=== PATIENT | male | born 1975 | race Caucasian/White ===

== ENCOUNTER → 2020-06-30 14:58 | Outpatient (CLI) | payer OTHER, SELFPAY ==
--- NOTE | ~2020-06-30 | CT_ITS ---
EXAMINATION: CT abdomen pelvis w con EXAM DATE: 06/30/2020 16:01 INDICATION: Abdominal pain, mostly generalized. Sometimes in the right lower quadrant. Nausea, diarrh ea. TECHNIQUE: Spiral CT of the abdomen and pelvis was performed following intravenous injection of 100 m L Omnipaque 350. Axial, coronal and sagittal images were reviewed. The dose-length product (DLP) fo r this examination was 1158.87 mGy-cm. The exposure was tailored according to patient size (auto mA exposure control), and iterative reconstruction (ASIR) was used as additional dose reduction techniqu e. There is no prior study for comparison. FINDINGS: The liver, spleen, adrenal glands and pancreas are unremarkable. Gallbladder is unremarkab le. No biliary obstruction. Portal and splenic veins are patent. Kidneys enhance symmetrically. T here is no hydronephrosis. The prostate is unremarkable. Small bilateral inguinal fat-containing he rnias. Small umbilical fat-containing hernia. The bladder is unremarkable. There is no retroperitone al or pelvic lymphadenopathy. The appendix is normal. There is mild to moderate scattered colonic diverticulosis. There is no kavon cent inflammatory change to suggest diverticulitis. The stomach and small bowel are unremarkable. Th ere is expected amount of colonic stool. No free intraperitoneal gas. The heart is normal in size . There are no pericardial or pleural effusions. The lung bases are unremarkable. There are no ost eoblastic or osteolytic lesions identified. IMPRESSION: 1. Mild to moderate scattered colonic diverticulosis. 2. Small fat-containing hernias. Reviewed, dictated and finalized at location B. [employer]
== END ==
PROVIDERS: PCP Family Medicine; Visit Provider Nurse Practitioner Family
DX: R10.84 Generalized abdominal pain (principal); R14.0 Abdominal distension (gaseous); R63.5 Abnormal weight gain; K57.90 Diverticulosis of intestine, part unspecified, without perforation or abscess without bleeding
CPT/HCPCS: 74177; Q9967

== ENCOUNTER 2023-12-25 12:06 | Emergency (ER) | payer OTHER, SELFPAY ==
[2023-12-25] VITALS (9 sets, daily range): BP systolic 130–149; BP diastolic 80–102; PULSE 57–74; RESP 14–21; TEMP 36.4; O2SAT 95–98
--- NOTE | ~2023-12-25 | XR_ITS ---
EXAMINATION: XR chest 2V 12/25/2023 12:42 INDICATION: Chest pain PROCEDURE: 2 view chest COMPARISON: No prior studies for comparison. FINDINGS: The lungs are clear. The cardiomediastinal silhouette is within normal limits. There are no pleural effusions. There is no pneumothorax suspected. IMPRESSION: 1: NO ACUTE CARDIOPULMONARY DISEASE. Reviewed, dictated and finalized at location B.
--- NOTE | 2023-12-25 12:07 | ECG_ITS ---
SEE SCANNED COPY FOR CONFIRMED REPORT. MTDD
[2023-12-25 12:25] LABS: Basophils Percent Auto 0.3 % (0.2-1.2); Eosinophils Percent Auto 0.6 % (0-4.4); Hematocrit 44.4 % (42.0-52.0); Hemoglobin 15.5 g/dL (14.0-18.0); Immature Granulocyte Absolute 0.02 K/mm3 (0.00-0.031); Immature Granulocyte Percent A 0.3 % (0-0.5); Lymphocytes Absolute Auto 1.97 K/mm3 (0.9-3.2); Lymphocytes Percent Auto 30.3 % (18.3-44.2); Mean Corpuscular HGB Conc 34.9 g/dl (32-36); Mean Corpuscular Hemoglobin 30.4 pg (26-34); Mean Corpuscular Volume 87.1 fl (80-100); Mean Platelet Volume 9.5 fl (7.4-10.4); Monocytes Absolute Auto 0.5 K/mm3 (0.1-0.6); Monocytes Percent Auto 7.8 % (2.6-8.5); Neutrophils Absolute Auto 3.9 K/mm3 (1.3-6.7); Neutrophils Percent Auto 60.7 % (45.5-73.1); Platelet Count Result 216 k/mm3 (150-375); Red Cell Distribution Width 12.3 % (11.5-14.5); White Blood Count 6.5 K/mm3 (4.5-10.0)
[2023-12-25 12:35] LABS: INR 0.9; Prothrombin Time 13.1 Seconds (11.1-14.7)
[2023-12-25 12:36] LABS: Partial Thromboplastin Time 24.3 Seconds (22.3-36.8)
[2023-12-25 12:39] LABS: Alanine Aminotransferase 21 U/L (6-50); Albumin Level 4.8 g/dL (3.5-5.1); Alkaline Phosphatase 53 U/L (38-126); Anion Gap 9 mmol/L (4-12); Aspartate Amino Transferase 23 U/L (17-59); Bilirubin,Total 0.6 mg/dL (0.2-1.3); Blood Urea Nitrogen 22 mg/dL (9-20); Calcium 9.4 mg/dL (8.4-10.2); Carbon Dioxide 24 mmol/L (22-30); Chloride 106 mmol/L (98-107); Estimated CRCL calculation 125 ml/min; Estimated Glomerular Filt Rate > 60; Glucose 100 mg/dL (65-110); Lipase 69 U/L (23-300); Potassium 4.1 mmol/L (3.4-5.0); Sodium 139 mmol/L (137-145)
[2023-12-25 12:50] LABS: Troponin I < 0.012 ng/mL (0.000-0.034)
--- NOTE | 2023-12-25 15:02 | ECG_ITS ---
SEE SCANNED COPY FOR CONFIRMED REPORT. MTDD
[2023-12-25 15:28] LABS: Troponin I < 0.012 ng/mL (0.000-0.034)
--- NOTE | 2023-12-25 15:42 | ED.CHESTPAIN ---
HPI - Chest Pain General Chief Complaint: Chest Pain Stated Complaint: lightheaded dizzy CP cold sweats Time Seen by Provider: 12/25/23 14:04 History of Present Illness HPI narrative: 48-year-old male presents to the emergency department for evaluation after having episode of chest pain last night. patient states he woke up approximately 3:00 a.m. to have a bowel movement was having some lower abdominal pain which he states is not uncommon for him patient states that he was not bearing down hard for the bowel movement but did have onset of chest pain with associated diaphoresis. Patient does report pain that radiates to his left shoulder but does report history clavicle injury chronic pain at the left shoulder. Patient denies any prior history of coronary disease, and denies any prior history high cholesterol, hypertension. Related Data Allergies Allergy/AdvReac Type Severity Reaction Status Date / Time No Known Allergies Allergy Verified 07/21/20 08:50 Review of Systems Review of Systems: All systems reviewed & are unremarkable except as noted in HPI and below PMFSH Past Medical History Medical History (Reviewed 07/21/20 @ 08:51 by Mckenna Thayer [facility]) Heartburn Surgical History Surgical History H/O knee surgery Family History Family History Grandparent Carcinoma of colon Father Family history of type 2 diabetes mellitus Mother Family history of type 2 diabetes mellitus Social History Social History (Reviewed 07/21/20 @ 08:51 by Mckenna Thayer [facility]) Smoking status: Never smoker Alcohol intake: current Substance use: unknown Living arrangements: with family Occupation/Education: occupation Additional occupation/education comments: teacher Gender identity (if verbalized by the patient): Female Exam Narrative: APPEARANCE: Well appearing, no pain, no distress, well-nourished. HEAD: normocephalic, atraumatic. EYES: PERRLA/EOMI, conjunctivae clear. NOSE: Normal no drainage EARS:TMS clear with good light reflex. THROAT: Pharynx clear, no exudate. NECK: Supple. No adenopathy, no masses. RESPIRATORY: Airway patent, respirations nonlabored. Clear to auscultation bilaterally, no rales, rhonchi, wheezing. CARDIOVASCULAR: Regular rate and rhythm without murmurs rubs or gallops. ABDOMINAL: Soft, nontender, nondistended, normal bowel sounds MUSCULOSKELETAL: Moves all extremities. Strength/ROM intact, No edema, No calf tenderness. NEURO: Alert. Cranial nerves II through XII intact. Grossly intact SKIN: Warm, dry. Normal Color Course Vital Signs Vital signs: Vital Signs Temperature 97.5 F L 12/25/23 12:19 Pulse Rate 73 12/25/23 12:19 Respiratory Rate 16 12/25/23 12:19 Blood Pressure 143/82 H 12/25/23 12:19 Pulse Oximetry 97 12/25/23 12:19 Oxygen Delivery Room Air 12/25/23 12:19 Temperature 97.5 F L 12/25/23 12:19 Pulse Rate 64 12/25/23 17:49 Respiratory Rate 14 12/25/23 17:49 Blood Pressure 139/98 H 12/25/23 17:49 Pulse Oximetry 98 12/25/23 17:49 Oxygen Delivery Room Air 12/25/23 14:33 MDM - Chest Pain MDM Narrative Medical decision making narrative: 48-year-old male presents to the emergency department for evaluation of chest pain. Patient is afebrile with no leukocytosis and a stable hemoglobin of 15.5, no acute abnormalities the CMP and patient had negative troponin and a chest x-ray shows no acute cardiopulmonary abnormality. EKG showed no evidence of acute STEMI. Patient had negative D-dimer. Patient had negative serial troponins. Lipase was negative. EKG showed normal sinus rhythm with no evidence acute STEMI. Differential Diagnosis Differential diagnosis: Likely fracture of rib, pneumothorax, stable angina, unstable angina pectoris, atypical chest pain, st elevation myocardial infarction, costochondriti
[2023-12-25] MEDS: ASPIRIN 81 MG CHEWABLE TABLET 324 MG PO (15:49)
[2023-12-25 16:20] LABS: D Dimer < 0.27 ug/mL (<0.48)
== END 2023-12-25 17:50 | disposition home or self-care (01) ==
PROVIDERS: Student in an Organized Health Care Education/Training Program; Emergency Provider Emergency Medicine; PCP Family Medicine
DX: R07.9 Chest pain, unspecified (principal); R12 Heartburn
CPT/HCPCS: 36415; 71046; 80053; 83690; 84484; 85025; 85380; 85610; 85730; 93005; 99284; A9270

== ENCOUNTER 2024-01-11 13:45 | Outpatient (CLI) | payer OTHER, SELFPAY ==
--- NOTE | ~2024-01-11 | US_ITS ---
EXAMINATION: US abdomen complete DATE: 01/11/2024 14:06 INDICATION: Generalized abdominal pain. TECHNIQUE: Multiple grayscale and Doppler ultrasound images of the abdomen were obtained. COMPARISON: CT abdomen and pelvis 06/30/2020 FINDINGS: The visualized portions of the head, body, and tail of the pancreas are normal. The liver i s normal without focal lesion. There is normal flow in main portal vein. The gallbladder is normal in size. No gallstones or gallbladder wall thickening. There is no sonographic Zhou's sign. The commo n duct is normal and measures 4 mm. There is chronic mild splenomegaly, likely secondary to obesity. The kidneys are normal in size. Abdominal aorta is normal in caliber. Inferior vena cava is normal. IMPRESSION: 1. No etiology for the patient's symptoms. Reviewed, dictated and finalized at location E.
== END 2024-01-11 13:46 ==
PROVIDERS: PCP Family Medicine; Visit Provider Nurse Practitioner Family
DX: R10.84 Generalized abdominal pain (principal)
CPT/HCPCS: 76700

== ENCOUNTER 2024-02-15 09:27 | Outpatient (CLI) | payer OTHER, SELFPAY ==
--- NOTE | 2024-02-15 09:32 | EST_ITS ---
Patient Info Name: Lenny Ley Age: 48 years : 1975 Gender: Male Ht: 74 in Wt: 270 lbs BSA: 2.57 m2 HR: 59 bpm BP: 116 / 79 mmHg Heart Rhythm: Sinus Rhythm Exam Date: 02/15/2024 9:48 AM Exam Location: Echo Lab Patient Status: Outpatient Admit Date: 02/15/2024 Staff Ordering Physician: Tyshawn, Dave Delgadillo NP Attending Provider: Demetrius Ngo MD Exercise Technologist: Inez Macdonald CT Exercise Physician: Lux Becerra DO Exam Type: CA stress test treadmill Study Info Indications R07.9 - Chest pain, unspecified A treadmill exercise stress test was performed. Summary 1. 1. Negative Masood exercise stress test for ischemic ST changes by ECG criteria. 2. 2. Good functional capacity, achieving 12 METs of workload. 3. 3. Appropriate HR response to exercise. 4. 4. Appropriate HR recovery at 1 minute post exercise. 5. 5. No imaging with stress testing. 6. 6. Patient informed of the above results. Protocol: Masood Stress ECG Details Stage: REST Duration (min): 1 min : 6 sec Speed (mph): 0.0 Grade (%): 0 HR (bpm): 56 SBP (mmHg): 116 DBP (mmHg): 79 METS: --- Stage: REST Duration (min): 6 min : 21 sec Speed (mph): 0.0 Grade (%): 0 HR (bpm): 63 SBP (mmHg): 116 DBP (mmHg): 79 METS: --- Stage: STAGE 1 Duration (min): 1 min : 0 sec Speed (mph): 1.7 Grade (%): 10 HR (bpm): 93 SBP (mmHg): 116 DBP (mmHg): 79 METS: --- Stage: STAGE 1 Duration (min): 2 min : 0 sec Speed (mph): 1.7 Grade (%): 10 HR (bpm): 98 SBP (mmHg): 116 DBP (mmHg): 79 METS: --- Stage: STAGE 1 Duration (min): 3 min : 0 sec Speed (mph): 1.7 Grade (%): 10 HR (bpm): 97 SBP (mmHg): 136 DBP (mmHg): 89 METS: --- Stage: STAGE 2 Duration (min): 1 min : 0 sec Speed (mph): 2.5 Grade (%): 12 HR (bpm): 112 SBP (mmHg): 136 DBP (mmHg): 89 METS: --- Stage: STAGE 2 Duration (min): 2 min : 0 sec Speed (mph): 2.5 Grade (%): 12 HR (bpm): 117 SBP (mmHg): 164 DBP (mmHg): 92 METS: --- Stage: STAGE 2 Duration (min): 3 min : 0 sec Speed (mph): 2.5 Grade (%): 12 HR (bpm): 113 SBP (mmHg): 164 DBP (mmHg): 92 METS: --- Stage: STAGE 3 Duration (min): 1 min : 0 sec Speed (mph): 3.4 Grade (%): 14 HR (bpm): 124 SBP (mmHg): 188 DBP (mmHg): 90 METS: --- Stage: STAGE 3 Duration (min): 2 min : 0 sec Speed (mph): 3.4 Grade (%): 14 HR (bpm): 125 SBP (mmHg): 188 DBP (mmHg): 90 METS: --- Stage: STAGE 3 Duration (min): 3 min : 0 sec Speed (mph): 3.4 Grade (%): 14 HR (bpm): 131 SBP (mmHg): 184 DBP (mmHg): 89 METS: --- Stage: STAGE 4 Duration (min): 1 min : 0 sec Speed (mph): 4.2 Grade (%): 16 HR (bpm): 150 SBP (mmHg): 184 DBP (mmHg): 89 METS: --- Stage: STAGE 4 Duration (min): 1 min : 30 sec Speed (mph): 4.2 Grade (%): 16 HR (bpm): 160 SBP (mmHg): 184 DBP (mmHg): 89
== END 2024-02-15 09:28 | disposition home or self-care (01) ==
PROVIDERS: PCP Family Medicine; Visit Provider Family Medicine
DX: R07.9 Chest pain, unspecified (principal)
CPT/HCPCS: 93017

== ENCOUNTER 2024-09-23 19:31 | Emergency (ER) | payer OTHER, SELFPAY ==
[2024-09-23 19:40] VITALS: BP 151/77; PULSE 73; RESP 16; TEMP 36.3; O2SAT 97
--- NOTE | 2024-09-23 19:42 | ED.URI ---
HPI - URI/Sore Throat General Chief Complaint: Upper Respiratory Infection Stated Complaint: Cough/Sinus Time Seen by Provider: 09/23/24 19:40 Source: patient Mode of arrival: ambulatory Limitations: no limitations History of Present Illness HPI Narrative: Lenny is a 48-year-old female patient presenting to the clinic today with complaints of cough and sinus congestion x6 weeks. He reports he is coughing up green, brown, and yellow phlegm. Is also blowing out the same type of nasal drainage. Reports sinus congestion and pressure. Denies any known fever, chills, body aches. Denies any chest pain or shortness of breath. MD elicited complaint: cough and nasal congestion Related Data Home Medications ?Medication ?Instructions ?Recorded ?Confirmed ?Last Taken ?Type multivitamin 1 tablet PO DAILY 01/01/24 04/16/24 Unknown History Allergies Allergy/AdvReac Type Severity Reaction Status Date / Time No Known Allergies Allergy Verified 09/23/24 19:43 Review of Systems Review of Systems: Pertinent positives per HPI. Patient denies any fever, chills, rash, visual changes, dizziness, shortness of breath, chest pain, palpitations, nausea, vomiting, diarrhea, constipation, abdominal pain, or any urinary issues. [facility] Past Medical History Medical History Arthritis Heartburn Surgical History Surgical History H/O knee surgery Family History Family History Grandparent Carcinoma of colon Father Family history of type 2 diabetes mellitus Mother Family history of type 2 diabetes mellitus Depression Other Cerebrovascular accident Diabetes mellitus Heart disease Skin cancer Thyroid disease Social History Social History Smoking status: Never smoker Alcohol intake: current Substance use: unknown Do You Feel Safe in your Home?: Yes Lack of Transportation: No Lack of Food: Never True Current Housing: I Have Housing Concerned About Future Housing: No Difficulty Paying Gas/Electric Bills: No Difficulty Paying for Meds: No Currently Unemployed: No Education: Bachelor's Degree Difficulty w/ Childcare or Family Care: No Living arrangements: with family Occupation/Education: occupation Additional occupation/education comments: teacher Gender identity (if verbalized by the patient): Female Comments At the time of my signature, I reviewed and agree with the nursing past medical, surgical, social, and family history. There is no relevant family history pertinent to the patient complaint. Exam Narrative: General: Well-developed, well nourished, in no apparent distress Head: Normocephalic, atraumatic Eyes: Pupils equally round and reactive to light bilaterally, EOM intact, sclera and conjunctive clear, no discharge, lids normal Ears: TMs intact and congested, ear canals clear, no drainage, grossly hearing normal. Nose: Nares patent, green nasal discharge, moderate inflammation, maxillary and frontal sinus tenderness. Mouth: Oral pharynx red without lesions or masses, good dentition, MMM. Postnasal drip Neck: Supple, trachea midline, no enlargement of anterior or posterior cervical nodes, no thyroid masses or goiter palpable. Cardio: Regular rate and rhythm, s1 and s2 normal, no murmur appreciated. Resp: Clear to auscultation bilaterally, no rhonchi, rales, wheezing or rubs Course Course Emergency Course: Portions of this record may have been created with voice recognition software. Level of Care: Express Care Visit Vital Signs Vital signs: Vital Signs Temperature 36.3 C L 09/23/24 19:40 Pulse Rate 73 09/23/24 19:40 Respiratory Rate 16 09/23/24 19:40 Blood Pressure 151/77 H 09/23/24 19:40 Pulse Oximetry 97 09/23/24 19:40 Oxygen Delivery Room Air 09/23/24 19:40 Temperature 36.3 C L 09/23/24 19:40 Pulse Rate 73 09/23/24 19:40 Respiratory Rate 16 09/23/24 19:40 Blood Pressure 151/77 H 09/23/24 19:40 Pulse Oximetry 97 09/23/24 19:40 Oxygen Delivery Room Air 09/23/24 19:40 Vital signs reviewed MDM - URI/Sore Throat MDM Narrative Medical decision making narrative: At the time of visit patient is resting comfortably on the exam table. Patient appears to be nontoxic. Plan: I suspect patient has acute bacterial rhinosinusitis. Prescription for Augmentin and prednisone was sent to the pharmacy. Supportive measures were discussed with the patient and they voiced understanding discharge instructions and agrees to treatment plan. Return precautions reviewed Differential Diagnosis Differential diagnosis: Likely upper respiratory infection, otitis media, sinusitis, viral infection, bronchitis, influenza, pharyngitis and other (COVID) Discharge Plan Discharge Clinical Impression: Acute bacterial rhinosinusitis Patient Disposition: Home, Self-Care Condition: Stable Instructions: Antibiotic Form, Rhinosinusitis (ED) Additional Instructions: Take prescription medications only as prescribed-prednisone and Augmentin Increase fluids and stay well hydrated Tylenol/motrin for pain/fever Flonase and OTC antihistamines as directed Vicks vapor rub to open sinuses Sinus rinses for congestion Cepacol spray, cough drops, throat lozenges, warm tea with honey/lemon, gargle salt water to soothe throat BRAT diet for diarrhea Clear liquids x 24 hours then advance as tolerated for nausea/vomiting Go to the ED if you develop a worsening in your condition- high fever not controlled by Tylenol or Motrin, dehydration, weakness, lethargy, shortness of breath, or chest pain. Follow up with your PCP in 3-5 days if symptoms persist. Patient Language: Syriac Prescriptions: New amoxicillin-pot clavulanate 875-125 mg tablet 1 tablet PO Q12H 10 Days Qty: 20 0RF prednisone 50 mg tablet 50 mg PO DAILY 5 Days Qty: 5 0RF No Action multivitamin Tablet 1 tablet PO DAILY Follow-up/Referrals: Demetrius Ngo MD [Primary Care Provider] - Time of Disposition: 19:46 Quality NIHSS Nursing Documentation ED NIHSS nursing documentation: reviewed/agree
== END 2024-09-23 19:50 | disposition home or self-care (01) ==
PROVIDERS: Emergency Provider Nurse Practitioner Family; PCP Family Medicine
DX: J01.90 Acute sinusitis, unspecified (principal); M19.90 Unspecified osteoarthritis, unspecified site; R12 Heartburn
CPT/HCPCS: 99213; G0463